=== PATIENT | male | born 1990 | race Caucasian/White ===

== ENCOUNTER 2018-07-25 14:52 | Emergency (ER) | payer SELFPAY ==
[2018-07-25 15:01] VITALS: BP 158/98; PULSE 99; RESP 85; TEMP 36.7; O2SAT 99
[2018-07-25] MEDS: Ketorolac 15 MG/ML VIAL IVP (15:56)
[2018-07-25] MEDS: Normal Saline 1,000 ML 1000 ML IV (15:57)
[2018-07-25 16:01] LABS: Abs Immature Grans 0.04 k/cumm (0.0-0.09); Absolute Basophil Count 0.07 k/cumm (0.0-0.2); Absolute Eosinophil Count 0.12 k/cumm (0.0-0.7); Absolute Lymphocyte Count 1.83 k/cumm (1.2-3.4); Absolute Monocyte Count 0.84 k/cumm (0.11-0.7); Absolute Neutrophil Count 10.79 k/cumm (1.2-6.7); Basophils % 0.5; Eosinophils % 0.9; HCT 45.8 % (40.0-50.0); HGB 16.1 g/dL (13.5-17.5); Immature Grans % 0.3; Lymphocytes % 13.4; Mean Corp. HGB Concentration 35.2 g/dL (32.0-36.0); Mean Corpuscular Hemoglobin 31.3 pg (27.0-33.0); Mean Corpuscular Volume 88.9 fL (80-95); Mean Platelet Volume 9.8 fL (8.0-11.0); Monocytes % 6.1; Neutrophils % 78.8; Platelet Count 231 x1000/uL (130-400); RBC 5.15 m/cumm (4.50-6.00); RBC Distribution Width 12.7 % (11.8-14.1); White Blood Cell Count 13.69 k/cumm (4.4-10.8)
[2018-07-25 16:15] LABS: ALT 15 U/L (12-78); AST 14 U/L (15-37); Albumin 4.4 g/dL (3.4-5.0); Alkaline Phosphatase 80 U/L (46-116); Anion Gap 11.2 mmol/L (3-11); BUN 17 mg/dL (7-18); Bilirubin, Total 0.9 mg/dL (0.2-1.0); CO2 26.8 mmol/L (21.0-32.0); CREATININE 1.26 mg/dL (0.70-1.30); Calcium 9.9 mg/dL (8.5-10.1); Chloride 102 mmol/L (98-107); Glucose 115 mg/dL (70-100); Lipase 62 U/L (73-393); Potassium 3.2 mmol/L (3.5-5.1); Sodium 140 mmol/L (136-145)
[2018-07-25 16:29] LABS: Bilirubin Negative (Negative); Blood Large (Negative); Clarity Clear; Glucose Negative (Negative); Ketones 15 mg/dL (Negative); Leukocyte Esterase Negative (Negative); Nitrite Negative (Negative); Specific Gravity 1.015 (1.005-1.025); Urobilinogen 0.2 EU/dL (Up TO 0.2)
[2018-07-25 16:53] LABS: Bacteria Negative HPF (Negative); C & S Indicated? No; Casts Negative LPF (Negative); Crystals Negative HPF (Negative); Epithelial Cells Negative HPF (Negative); Mucus Negative (Negative); WBC Negative HPF (0-5)
--- NOTE | 2018-07-25 18:19 | DI.CT_ITS ---
SYMPTOMS/DIAGNOSIS: LEFT FLANK PAIN AND PERIUMBILICAL PAIN ABDOMINAL AND PELVIC CT: CT examination of the abdomen and pelvis was performed without contrast administration. Images obtained through the lung bases were unremarkable. The liver, spleen and pancreas appear normal by noncontrast criteria, as do the gallbladder and bile ducts. Abdominal aorta is of normal diameter. No significant abdominal wall hernia is seen. No significant abdominal or pelvic adenopathy is seen. Appendix is normal. No evidence of diverticulitis or bowel obstruction. Adrenals appear normal bilaterally. The right kidney and ureter are normal. Left kidney is unremarkable in appearance. There is mild left ureteral dilatation and there is an apparent low grade obstruction of the distal left ureter with an approximately 2 mm in diameter calculus in the distal ureter just above the UVJ. Urinary bladder is essentially empty. CONCLUSION: Low grade obstruction secondary to distal left ureteral 2 mm calculus as described above.
--- NOTE | 2018-07-25 18:56 | DI.VRAD_ITS ---
EXAM: CT Abdomen and Pelvis Without Intravenous Contrast CLINICAL HISTORY: 27 years old, male; Pain; Other: Lt flank; Patient HX: Left flank pain, periumbilical pain TECHNIQUE: Axial computed tomography images of the abdomen and pelvis without intravenous contrast. All CT scans at this facility use at least one of these dose optimization techniques: automated exposure control; mA and/or kV adjustment per patient size (includes targeted exams where dose is matched to clinical indication); or iterative reconstruction. Coronal and sagittal reformatted images were created and reviewed. COMPARISON: No relevant prior studies available. FINDINGS: Lung bases: No focal pathology. No mass. No consolidation. ABDOMEN: Liver: No focal pathology. Gallbladder and bile ducts: No focal pathology. No calcified stones. No ductal dilation. Pancreas: No focal pathology. No ductal dilation. Spleen: No focal pathology. No splenomegaly. Adrenals: No focal pathology. No mass. Kidneys and ureters: 2 mm calculus in the distal left ureter just proximal to the ureterovesicular junction, causing mild left hydroureter but no significant left hydronephrosis. No nephrolithiasis bilaterally; no right hydronephrosis. Stomach and bowel: No focal pathology. No obstruction. No mucosal thickening. PELVIS: Appendix: No findings to suggest acute appendicitis. Bladder: No focal pathology. No stones. Reproductive: Unremarkable as visualized. ABDOMEN and PELVIS: Intraperitoneal space: No free air. No significant fluid collection. Bones/joints: No acute fracture. No dislocation. Soft tissues: Unremarkable. Vasculature: No focal pathology. No abdominal aortic aneurysm. Lymph nodes: No enlarged lymph nodes. IMPRESSION: 2 mm calculus in the distal left ureter just proximal to the ureterovesicular junction, causing mild left hydroureter but no significant left hydronephrosis. Dictated and Authenticated by: Mattie Sotelo MD. Ordering:MARK ALLAN MD
--- NOTE | 2018-07-25 20:56 | W.ED.GENAD ---
Discharge Plan Disposition Patient Disposition: HOME Condition: Good Discharge Details Chief Complaint: Abd Prob Clinical Impression: Urolithiasis, Acute hypokalemia Primary Care Provider: [facility] Provider: Qamar Pettit Home Meds and New Rx's Prescriptions: New acetaminophen [Mapap Extra Strength] 500 MG tablet 1,000 mg PO Q6H 5 Days Qty: 60 RF: 0 ibuprofen [Motrin IB] 200 MG tablet 600 mg PO Q6H 5 Days Qty: 60 RF: 0 tamsulosin [Flomax] 0.4 mg capsule 0.4 mg PO DAILY Qty: 3 RF: 0 Discharge Instructions Instructions: Kidney Stones (ED) Additional Instructions: Please take medication as directed. Please stop taking the medication if you do not have any more pain. If you notice any worsening of your symptoms, or any new symptoms such as vomiting, diarrhea, fever, chills, shortness of breath, chest pain, numbness, weakness, or fainting , please return immediately to the emergency department for reevaluation. Please follow up with your primary care provider as soon as possible for reassessment and reevaluation. As always, it was a pleasure participating in your medical care today. Medical Decision Making This is a 27-year-old male who presents for evaluation of left-sided groin pain that radiates to his left flank. Physical exam demonstrates no significant reproducible abdominal tenderness. Testicular exam demonstrates no testicular tenderness, and a normal cremasteric reflex bilaterally. I feel that his signs and symptoms are inconsistent with testicular torsion. Because of this we did perform urinalysis, urinalysis does show evidence of small amount of RBCs. CT scan was ordered and has resulted in a 2 mm stone being present at the left UVJ junction. Patient was given Toradol and rehydrated. On reassessment the patient's pain is completely gone, he is in no acute distress, and vital signs are normal. With no evidence of significant infection in his urine, I feel he can be safely discharged home as his renal function is normal and his pain is well controlled. We discussed red flags for which to return including the importance of close follow-up with PCP. We will get him a primary care provider for follow-up. We recommended increasing his regular potassium intake at home with potassium rich foods. I have extensively reviewed the treatment plan and discharge instructions with the patient and their family. I have addressed all patient concerns at this time. The patient and family was made aware of what symptoms to monitor for that would warrant a return to the emergency department. Discussed the plan with the patient and family, they demonstrate verbal understanding and agreement with our assessment and plan at this time. IMPRESSION: 2 mm calculus in the distal left ureter just proximal to the ureterovesicular junction, causing mild left hydroureter but no significant left hydronephrosis. HPI General Date/Time Provider Initiated Documentation: 07/25/18 15:31. HPI Narrative: This is a 27-year-old male who denies any significant past medical history who presents for evaluation of left testicular pain. It occurred roughly 20 minutes prior to arrival. He states that it is more like an ache in his left groin that goes around to his left flank. He denies any dysuria hematuria or increased urinary frequency. He denies any pain in his testicle itself. He denies any recent trauma or history of kidney stones. Symptoms are made worse by nothing, improved by nothing. He denies any nausea vomiting diarrhea. Patient denies any recent surgeries, IV or illicit drug use or any pertinent family history. He has no other complaints at this time. Related Data Home Medications Medication Instructions Recorded Confirmed acetaminophen [Mapap Extra 1,000 mg PO Q6H 5 Days #60 tab 07/25/18 Strength] ibuprofen [Motrin Ib] 600 mg PO Q6H 5 Days #60 tab 07/25/18 tamsulosin [Flomax] 0.4 mg PO DAILY #3 cap 07/25/18 Previous Rx's Medication Instructions Recorded acetaminophen [Mapap Extra 1,000 mg PO Q6H 5 Days #60 tab 07/25/18 Strength] ibuprofen [Motrin Ib] 600 mg PO Q6H 5 Days #60 tab 07/25/18 tamsulosin [Flomax] 0.4 mg PO DAILY #3 cap 07/25/18 Allergies Allergy/AdvReac Type Severity Reaction Status Date / Time Penicillins Allergy Unverified 07/25/18 17:11 General Stated Complaint: Abd Prob DECLAN: 3 Review of Systems Review of Systems All systems reviewed & are unremarkable except as noted in HPI and below PFSH Social History Smoking/Tobacco Use Status: Current every day Exam Narrative Exam Narrative: 1.Const: Well-nourished, Well-developed, appearing stated age 2.Eyes: PERRL, no conjunctival injection, and symmetrical lids. 3.ENT: Atraumatic external nose and ears. Moist MM. Neck: Symmetric, trachea midline, No thyromegaly. 4.CVS: +S1/S2, No murmurs or gallops. Peripheral pulses 2+ and equal in all extremities. Brisk capillary refill in all extremities. 5.RESP: Unlabored respiratory effort. Clear to auscultation bilaterally. No wheezes rales or rhonchi 6.GI: Soft, Nontender/Nondistended, No hepatosplenomegaly. No guarding or rebound. No CVA tenderness. Genital exam demonstrates a circumcised penis, no testicular tenderness. Normal cremasteric reflex bilaterally. No tenderness over the epididymis. No evidence of bulging, or hernia. No penile shaft tenderness, no lesions vesicles or masses. 7.MSK: Normocephalic/Atraumatic, Extremities w/o deformity or ttp No cyanosis or clubbing, Normal movement of all extremities 8.Skin: Warm, Dry. No rashes or lesions. 9.Neuro: dials inspector II-XII grossly intact. Sensation grossly intact, no focal neurologic deficits. 10.Psych: (AAO) x3. Appropriate mood and affect Course Vital Signs Temperature 36.7 C 07/25/18 15:01 Pulse 99 H 07/25/18 15:01 Respiratory Rate 85 H 07/25/18 15:01 Blood Pressure 158/98 H 07/25/18 15:01 Pulse Oximetry 99 07/25/18 15:01 Temperature 36.7 C 07/25/18 15:01 Temperature Source Skin 07/25/18 15:01 Pulse 99 H 07/25/18 15:01 Respiratory Rate 85 H 07/25/18 15:01 Blood Pressure 158/98 H 07/25/18 15:01 Blood Pressure Position Sitting 07/25/18 15:01 Pulse Oximetry 99 07/25/18 15:01 Oxygen Delivery Method Room Air 07/25/18 15:01 Oxygen Flow Rate 0 07/25/18 15:01 Pain Level 10 07/25/18 17:12 Lab/Test Results Lab/Test Results: Laboratory Tests Range/Units 07/25/18 07/25/18 07/25/18 15:55 15:55 16:15 WBC (4.4-10.8) k/cumm 13.69 H RBC (4.50-6.00) m/cumm 5.15 Hgb (13.5-17.5) g/dL 16.1 Hct (40.0-50.0) % 45.8 MCV (80-95) fL 88.9 MCH (27.0-33.0) pg 31.3 MCHC (32.0-36.0) g/dL 35.2 RDW (11.8-14.1) % 12.7 Plt Count (130-400) x1000/uL 231 MPV (8.0-11.0) fL 9.8 Immature Gran % 0.3 Neutrophils % 78.8 Lymphocytes % 13.4 Monocytes % 6.1 Eosinophils % 0.9 Basophils % 0.5 Absolute Neutrophils (1.2-6.7) k/cumm 10.79 H Absolute Lymphocytes (1.2-3.4) k/cumm 1.83 Absolute Monocytes (0.11-0.7) k/cumm 0.84 H Absolute Eosinophils (0.0-0.7) k/cumm 0.12 Absolute Basophils (0.0-0.2) k/cumm 0.07 Sodium (136-145) mmol/L 140 Potassium (3.5-5.1) mmol/L 3.2 L Chloride (98-107) mmol/L 102 Carbon Dioxide (21.0-32.0) mmol/L 26.8 Anion Gap (3-11) mmol/L 11.2 H BUN (7-18) mg/dL 17 Creatinine (0.70-1.30) mg/dL 1.26 Estimated GFR/1.73 m2 (mL/min/1.73m2) >= 60.00 Glucose (70-100) mg/dL 115 H Calcium (8.5-10.1) mg/dL 9.9 Total Bilirubin (0.2-1.0) mg/dL 0.9 AST (15-37) U/L 14 L ALT (12-78) U/L 15 Alkaline Phosphatase (46-116) U/L 80 Total Protein (6.4-8.2) g/dL 8.0 Albumin (3.4-5.0) g/dL 4.4 Lipase (73-393) U/L 62 L Urine Color (Yellow) Yellow Urine Clarity Clear Urine pH (5-8) 6.0 Ur Specific [place] (1.005-1.025) 1.015 Urine Protein (Negative) mg/dL Negative Urine Ketones (Negative) mg/dL 15 H Urine Blood (Negative) Large H Urine Nitrite (Negative) Negative Urine Bilirubin (Negative) Negative Urine Urobilinogen (Up TO 0.2) EU/dL 0.2 Ur Leukocyte Esterase (Negative) Negative Urine RBC (0-2) 5-10 H Urine WBC (0-5) HPF Negative Ur Epithelial Cells (Negative) HPF Negative Urine Crystals (Negative) HPF Negative Urine Bacteria (Negative) HPF Negative Urine Casts (Negative) LPF Negative Urine Mucus (Negative) Negative Ur Culture Indicated? No Urine Glucose (Negative) mg/dL Negative
--- NOTE | 2018-07-26 09:45 | CMPROGNOTE_ITS ---
Care Management Progress Note 07/26/18-Pt seen oon 07/25/[address] Bushra Pettit. Referral to [facility] for request to establish a PCP and f/u within 1 month faxed.
[2018-07-27 14:41] LABS: Chlamydia Result Negative; GC Result Negative; Specimen Description URINE
== END 2018-07-25 19:43 | disposition home or self-care (01) ==
PROVIDERS: Emergency Provider Student in an Organized Health Care Education/Training Program
DX: N20.9 Urinary calculus, unspecified (principal); E87.6 Hypokalemia
CPT/HCPCS: 36415; 80053; 83690; 87491; 87591; 96361; 96374; 99285; 74176; 81003; 81015; 85025; J1885